=== PATIENT | male | born 1980 | race Caucasian/White ===

== ENCOUNTER → 2018-05-07 | Outpatient (CLI) | payer BC ==
--- NOTE | 2018-05-07 20:43 | CT ---
EXAMINATION TYPE: CT foot RT wo con DATE OF EXAM: 05/07/2018 COMPARISON: None HISTORY: 37-year-old male Right ankle and foot pain after injury. TECHNIQUE: Contiguous axial scanning of the right foot without IV contrast. Coronal and sagittal adilene nstructions performed. 3-D reconstructions generated on a dedicated independent workstation. CT DLP: 221.5 mGycm Automated exposure control for dose reduction was used. FINDINGS: There is a mildly comminuted sliver of bone measuring 1.0 cm along the lateral aspect of the anterior calcaneus. Some of the smaller comminuted fragments are mildly displaced into the deep aspect of the extensor digitorum muscle belly which appears somewhat edematous and thickened. No other acute fracture, subluxation, or dislocation is seen. The distal aspect of the toes are excluded from view. Talar dome is intact. Subtalar joint is aligned . Achilles tendon is poorly delineated. Origin of the plantar fascia is intact. IMPRESSION: MILDLY COMMINUTED 1 CM CHIP FRACTURE OF THE LATERAL ASPECT OF THE ANTERIOR CALCANEUS. SOME OF THE SMA LLER COMMINUTED FRAGMENTS ARE MILDLY DISPLACED INTO THE DEEP ASPECT OF THE EXTENSOR DIGITORUM MUSCLE BELLY WHICH IS EDEMATOUS AND CONTUSED. NO OTHER ACUTE OSSEOUS ABNORMALITY SEEN.
== END | disposition home or self-care (01) ==
LOC: RADCTMAIN 18:27
PROVIDERS: ATTEND Orthopaedic Surgery
DX: S92.021A Displaced fracture of anterior process of right calcaneus, initial encounter for closed fracture (principal); S90.31XA Contusion of right foot, initial encounter

== ENCOUNTER → 2020-05-12 | Outpatient (CLI) | payer BC ==
--- NOTE | 2020-05-12 15:54 | MR ---
MRI right foot HISTORY: Localized swelling, pain, trauma 2 months prior multiplanar multisequence imaging obtained through the right foot or graph no comparisons [id number] is not optimal for evaluation of the tendons about the ankle. At the level of the peron eal longus tendon there is some increased signal present within the substance with some associated serrano rrounding fluid suggesting strain, tenosynovitis, Proteus brevis tendon also shows some fluid signal along its substance with some suggestion of possible increased internal signal. Bone marrow signal is maintained. There is no evident fracture or dislocation. Achilles tendon is intact. Plantar aponeuro sis is intact. Articular cartilage signal is maintained. No evident sizable joint effusion. IMPRESSION: Findings suggest tenosynovitis, possible partial tear of the peroneal longus and brevis t endons.
== END | disposition home or self-care (01) ==
LOC: RADMRIMAIN 07:20
PROVIDERS: ATTEND Podiatrist Foot & Ankle Surgery
DX: S93.621A Sprain of tarsometatarsal ligament of right foot, initial encounter (principal); R22.41 Localized swelling, mass and lump, right lower limb